=== PATIENT | female | born 1955 | race Caucasian/White ===

== ENCOUNTER → 2023-10-17 08:54 | Outpatient (REF) | payer OTHER, SELFPAY | LOC: RAD 08:54 | PROVIDERS: ATTENDING PHYSICIAN Family Medicine | DX: M85.80 Other specified disorders of bone density and structure, unspecified site (principal) | CPT/HCPCS: 77080 ==

== ENCOUNTER → 2024-06-15 10:54 | Outpatient (REF) | payer OTHER, SELFPAY | LOC: RAD 10:54 | PROVIDERS: ATTENDING PHYSICIAN Family Medicine | DX: R05.8 Other specified cough (principal); J20.8 Acute bronchitis due to other specified organisms | CPT/HCPCS: 71046 ==

== ENCOUNTER → 2024-07-03 18:10 | Outpatient (REF) | payer OTHER, SELFPAY | LOC: WDC 18:10 | PROVIDERS: ATTENDING PHYSICIAN Family Medicine | DX: Z12.31 Encounter for screening mammogram for malignant neoplasm of breast (principal) | CPT/HCPCS: 77063; 77067 ==

== ENCOUNTER 2024-10-30 21:39 | Emergency (ER) | payer OTHER, SELFPAY ==
[2024-10-30 21:43] VITALS: BP 181/91
[2024-10-30 22:05] LABS: % Basophils 0.9 % (0-2); % Eosinophils 3.1 % (0-6); % Immature Granulocytes 0.3 % (0-0.5); % Lymphocytes 5.1 % (20.5-51.1); % Monocytes 8.7 % (1.7-9.3); % Neutrophils 81.9 % (42.2-75.2); Absolute Basophils 0.1 10^3/uL (0-0.2); Absolute Eosinophils 0.2 10^3/uL (0-0.7); Absolute Lymphocytes 0.3 10^3/uL (1.2-3.4); Absolute Monocytes 0.6 10^3/uL (0.1-0.6); Absolute Neutrophils 5.3 10^3/uL (1.4-6.5); Hematocrit 41.2 % (37.0-47.0); Hemoglobin 13.9 g/dL (12.0-16.0); Mean Corp Hgb Conc. 33.7 g/dL (33.0-37.0); Mean Corpuscular Hgb 28.3 pg (27.0-31.0); Mean Corpuscular Volume 83.9 fL (81.0-99.0); Mean Platelet Volume 11.5 fL (7.4-10.4); Nucleated Red Blood Cells % 0 %; Platelet Count 204 10^3/uL (130-400); Red Blood Cell Count 4.91 10^6/uL (4.20-5.40); Red Cell Dist. Width 13.2 % (11.5-14.5); White Blood Cell Count 6.4 10^3/uL (4.8-10.8)
[2024-10-30 22:18] LABS: ALT (SGPT) 93 U/L (0-35); AST (SGOT) 78 U/L (14-36); Albumin 4.3 g/dl (3.5-5.0); Alkaline Phosphatase 91 U/L (38-126); Blood Urea Nitrogen 9 mg/dl (7-17); Calcium 9.5 mg/dl (8.4-10.2); Carbon Dioxide 24 mmol/L (22-30); Chloride 103 mmol/L (98-107); Glucose 115 mg/dl (70-99); Potassium 3.9 mmol/L (3.5-5.1); Sodium 136 mmol/L (135-145); Total Bilirubin 0.5 mg/dl (0.2-1.3); Total Protein 7.3 g/dl (6.3-8.2); eGFR > 60.00
--- NOTE | 2024-10-30 22:18 | ED.GENMED ---
History of Present Illness
General
Chief Complaint: Cold/Flu/URI Symptoms
Source: patient
Exam Limitations: none
Time Seen by Provider: 10/30/24 22:13
History of Present Illness
History of Present Illness:
See MDM
Past History
Past History
ED Past Medical History: Hypercholesterolemia
ED Past Surgical History: Cholecystectomy
Social History
Tobacco: Non-smoker
Alcohol: None
Drug: None
Personal:
Living: with family
Phy Exam
Physical Exam
Physical Exam:
See MDM
Course
Orders/Labs/Results
Orders:
Orders
10/30/24 21:47
Electrocardiogram (*1) Urgent
Reason for Study: Other
Other Reason for Exam: Respiratory Distress
Cardiac Monitoring- Treatment ONCE
EKG- Treatment ONCE
CR Chest - 2 Views Urgent
Comment:
Reason For Exam: respiratory distress
O2 Therapy [RESP] Urgent
Titrate/Wean O2 to maintain O2 sat greater than (%): 93
Special Instructions: TO MAINTAIN CONTINUOUS O2 SATS >/= 93%
Pulse Ox/cont/shift [RESP] Urgent
Quantity: 1
Special Instructions: continuous pulse ox
10/30/24 21:57
COVID-19 Antigen Urgent
Source: Nasal Swab
Complete Blood Count/With Diff Urgent
Comprehensive Metabolic Panel Urgent
NT-proBNP Urgent
Troponin I Urgent
Influenza A+B Rapid Molecular Urgent
ROSA Source: Nasal Swab
Specimen Description:
10/30/24 22:19
Ketorolac [Toradol] 30 mg IM NOW STA
10/31/24 00:33
Amoxicillin 875 mg/Clav 125 mg [Augmentin 875 mg/125 mg] 1 tablet PO NOW STA
Doxycycline [Vibramycin] 100 mg PO NOW STA
10/31/24 00:41
Oxycodone/Acetaminophen [Percocet 5/325] 1 tablet PO NOW STA
Abnormal Lab Results
10/30/24
21:57
MPV 11.5 H fL
(7.4-10.4)
Absolute Lymphs (auto) 0.3 L 10^3/uL
(1.2-3.4)
Neutrophils % 81.9 H %
(42.2-75.2)
Lymphocytes % 5.1 L %
(20.5-51.1)
Glucose 115 H mg/dl
(70-99)
AST 78 H U/L
(14-36)
ALT 93 H U/L
(0-35)
10/30/24 21:57
10/30/24 21:57
Vital Signs
Initial and Last Documented VS:
Initial Vital Signs
Temp Pulse Resp BP Pulse Ox
99.9 F 92 20 181/91 97
10/30/24 21:43 10/30/24 21:43 10/30/24 21:43 10/30/24 21:43 10/30/24 21:43
Last Documented Vital Signs
Temp Pulse Resp BP Pulse Ox
99.9 F 85 14 144/79 94
10/30/24 21:43 10/31/24 00:00 10/31/24 00:00 10/31/24 00:00 10/31/24 00:00
MDM/Problems Addressed
Differential Diagnosis Includes:
HPI and MDM Narrative:
69-year-old female presenting with center chest discomfort. This has been for the last 2 to 3 days. This is associated with a dry cough. Her grandson was recently influenza. She did receive her flu shot this year. On exam, she is
well-appearing. She denies exertional symptoms. She denies prior history of cardiac issues. Blood work was started prior to my evaluation. Will obtain EKG. Chest x-ray was performed prior to my evaluation showed no acute pathology.
Physical exam
General: Well appearing and non-toxic
HEENT: protecting airway
Neck: appears supple
CV: No evidence of cyanosis. Regular rate and rhythm
Resp: No accessory muscle use. Lungs clear. No wheezing auscultated
Abd: Non-distended
Extremities: No deformities
Neuro: alert
Psych: Normal affect
Skin: Intact
Problems Addressed including Acute and Chronic Conditions affecting care:
1. Chest discomfort
Acuity: acute
Prognosis: stable
Details: Likely in setting of recent flu exposure. Chest x-ray clear. Will obtain EKG and troponin given duration of symptoms
Updates
Radiology contacted me indicating concern for possible pneumonia. It did reference that the left lateral opacity could be a mass but less likely given the rapid development from prior chest x-ray. Patient made aware of this and understands return
precautions
Differential Diagnosis (but not limited to): Pleurisy, noncardiac chest pain, pneumonia
Testing considered: D-dimer but she is neither tachycardic nor hypoxic
Drug therapy (if applicable): OTC meds, please see d/c instruction regarding Rx drugs
Amount and/or Complexity of Data Reviewed
Clinical info obtained from: Patient
External data reviewed: N/A
Labs I independently reviewed (but not limited to): Blood cell count normal
Radiology: X-ray independently reviewed: Possible pneumonia
Pulse Ox: not hypoxic
EKG independently reviewed: sinus rhythm, normal axis, no STEMI
Payroll Specialist: Sinus rhythm
Critical Care: N/A
Risk of Complication:
Social Determinants of health: Good social support
Discussed with other providers: N/A
Escalation of Care includes Admit/Obs: After being observed in the Emergency Department, pt stable for discharge.
Occasional wrong word or 'sound a like' substitutions may have occurred due to the inherent limitations of voice recognition software. Read the chart carefully and recognize, using context, where substitutions have occurred.
*Critical Care Note
Total Time (30-74mins, 75-104mins- exclusive of procedures): Not Applicable
ED Attending Note
-
Portions of this chart may have been created with voice recognition software.� Occasional wrong word or��sound alike� substitutions may have occurred due to the inherent limitations of voice recognition software.
Discharge Plan
Departure
Patient Disposition: Home (Routine Discharge)
Date of Disposition: 10/31/24
Time of Disposition: 00:36
Patient with high blood pressure during this ER visit?: Yes
Discharge Problem:
PNA (pneumonia)
Instructions: Community-acquired pneumonia in adults, BLOOD PRESSURE
Prescriptions:
New
doxycycline hyclate 100 mg capsule
100 mg PO BID Qty: 14 0RF
amoxicillin-pot clavulanate 875-125 mg tablet
1 tab PO BID Qty: 14 0RF
No Action
rizatriptan [Maxalt] 10 MG tablet
10 mg PO PRN PRN (Reason: migraine)
ezetimibe 10 MG tablet
10 mg PO DAILY
ibuprofen 200 MG tablet
600 mg PO QIDPRN PRN (Reason: pain) Qty: 1 0RF
oxycodone-acetaminophen 5 MG/325 MG tablet
0.5 - 1 tab PO Q4HPRN PRN (Reason: pain not relieved by ibuprofen) Qty: 10 0RF
lisinopril 5 mg tablet
5 mg PO DAILY Qty: 14 0RF
Referrals:
Jessica Carvalho DO [Family Provider] -
Activity Restrictions/Additional Instructions:
Please return for any worsening symptoms.
You may return at any time if you have further concerns.
Please follow up with your doctor at the first available appointment, preferably this week. Please have a repeat chest x-ray in a week or so.
Thank you for choosing [facility].
Interventions
Interventions:
*Risk Screen - Suicide Last Done: 10/30/24 21:43
*General Assessment Last Done: 10/30/24 21:43
*Neglect/Abuse Screening Last Done: 10/30/24 21:43
*ED- Fall Risk Assessment Last Done: 10/30/24 21:43
*ED COVID-19 Vaccine History Last Done: 10/30/24 21:43
ED- Pulmonary Assessment Last Done: 10/30/24 22:43
Discharge Date and Time
Print Language: MARSHALLESE
[2024-10-30 22:21] LABS: COVID-19 Antigen Negative (Negative)
[2024-10-30 22:29] LABS: NT-proBNP 190 pg/ml; Troponin I < 0.012 ng/ml
[2024-10-30 22:36] VITALS: BMI 32.6
[2024-10-30 22:38] VITALS: BP 159/87
[2024-10-30] MEDS: TORADOL 30 MG IM (22:40)
[2024-10-30 23:00] VITALS: BP 148/83
[2024-10-31] VITALS: BP 144/79
[2024-10-31] MEDS: VIBRAMYCIN 100 MG PO (00:44)
[2024-10-31] MEDS: AUGMENTIN 875 MG/125 MG 1 TABLET PO (00:45)
[2024-10-31] MEDS: PERCOCET 5/325 1 TABLET PO (00:45)
== END 2024-10-31 00:51 | disposition home or self-care (01) ==
LOC: EMR 21:39
PROVIDERS: EMERGENCY PHYSICIAN Student in an Organized Health Care Education/Training Program; FAMILY PHYSICIAN Family Medicine
DX: J18.9 Pneumonia, unspecified organism (principal)
CPT/HCPCS: 99285; 96372; 71046; 80053; 83880; 84484; 85025; 87502; 87811; 93005

== ENCOUNTER 2024-10-31 20:58 | Emergency (ER) | payer OTHER, SELFPAY ==
[2024-10-31 20:59] VITALS: BMI 31.6
[2024-10-31 21:00] VITALS: BP 154/86
[2024-10-31 21:14] LABS: % Basophils 0.8 % (0-2); % Immature Granulocytes 0.3 % (0-0.5); % Lymphocytes 14.2 % (20.5-51.1); % Neutrophils 68.7 % (42.2-75.2); Absolute Lymphocytes 0.6 10^3/uL (1.2-3.4); Absolute Monocytes 0.6 10^3/uL (0.1-0.6); Absolute Neutrophils 2.7 10^3/uL (1.4-6.5); Hematocrit 39.9 % (37.0-47.0); Hemoglobin 13.2 g/dL (12.0-16.0); Mean Corp Hgb Conc. 33.1 g/dL (33.0-37.0); Mean Corpuscular Hgb 27.8 pg (27.0-31.0); Mean Platelet Volume 11.4 fL (7.4-10.4); Nucleated Red Blood Cells % 0 %; Platelet Count 190 10^3/uL (130-400); Red Blood Cell Count 4.75 10^6/uL (4.20-5.40); Red Cell Dist. Width 13.3 % (11.5-14.5); White Blood Cell Count 3.9 10^3/uL (4.8-10.8)
[2024-10-31 21:44] LABS: ALT (SGPT) 89 U/L (0-35); AST (SGOT) 57 U/L (14-36); Albumin 4.4 g/dl (3.5-5.0); Alkaline Phosphatase 87 U/L (38-126); Blood Urea Nitrogen 9 mg/dl (7-17); Carbon Dioxide 22 mmol/L (22-30); Chloride 97 mmol/L (98-107); Glucose 105 mg/dl (70-99); Potassium 3.8 mmol/L (3.5-5.1); Sodium 130 mmol/L (135-145); Total Bilirubin 0.8 mg/dl (0.2-1.3); Total Protein 6.9 g/dl (6.3-8.2); eGFR > 60.00
--- NOTE | 2024-10-31 23:06 | ED.GENMED ---
History of Present Illness
General
Chief Complaint: Pneumonia Symptoms
Time Seen by Provider: 10/31/24 23:06
History of Present Illness
History of Present Illness:
TIME OF INITIAL ENCOUNTER: 11:10 PM
HPI: The patient was seen here yesterday and at that time had been having chest discomfort over the preceding few days. This is associated with a dry cough. Chest x-ray yesterday suggested pneumonia and she was placed on Augmentin. She continues
to feel worse. She now has associated nausea and headache. She has had migraines in the past. Daughter notes that she is more withdrawn today which is very abnormal for her.
EXAM:
GENERAL: Appears somewhat withdrawn and weak
HEENT: Moist oral mucosa
CARDIOVASCULAR: No murmurs, normal heart rate, regular rhythm, No chest wall tenderness
PULMONARY: No respiratory distress, breath sounds are clear and equal other than some faint rales in the right
ABDOMEN: Soft with no peritoneal signs, no tenderness
NEUROLOGIC: Excellent strength all extremities, no coordination deficits
PSYCHIATRIC: Appropriate mental status, normal insight and judgement
EXTREMITIES: Nontender, no edema, moves all extremities equally
SKIN: No rash, no lesions
NUMBER AND COMPLEXITY OF PROBLEMS ADDRESSED AT THE ENCOUNTER
� Chronic conditions affecting care: Migraines, has had pneumonia in the past
� Acute Exacerbation and/or Progression of Chronic Illness: This is an acute problem
� Differential Diagnosis includes: Acute exacerbation of migraine, worsening pneumonia
AMOUNT AND/OR COMPLEXITY OF DATA TO BE REVIEWED AND ANALYZED
� I performed an independent evaluation of and my interpretation is:
EKG:
CT:
X-rays: Chest x-ray by my read shows no significant change compared to chest x-ray from yesterday
Laboratory Studies: White count 3.9, hemoglobin normal, sodium slightly low at 130, mild transaminase elevation
Other:
� Review of other/old records: I reviewed the chest x-ray from yesterday that shows a new small 1.7 cm subpleural opacity at the peripheral left midlung and there is also moderate groundglass opacity in the right middle lobe and
mild consolidation at the lingula
� Clinical information was obtained by an independent historian: I spoke to and daughter at bedside
� Prescriptions/Medications Considered but not given:
� Further testing considered but not performed:
RISK OF COMPLICATIONS AND/OR MORBIDITY OR MORTALITY OF PATIENT MANAGEMENT
� Social determinants of health affecting care: Lives at home
� Discussion with other providers:
� Escalation of care including admission/observation vs risk of discharge considered: The patient is given IV fluids, Reglan/Benadryl along with Toradol. We also gave IV antibiotics.
ANY OTHER UPDATES:
12:30 AM: Overall the patient feels significantly improved regarding the headache and nausea. The chest x-ray is essentially unchanged from yesterday. She is afebrile and white count lower than yesterday.
2 AM: The patient feels significantly improved. We ultimately decided to have her stop the Augmentin and doxycycline and will use cefdinir instead. She states that when she took the antibiotic she was getting severely nauseated. I did consider
admission to the hospital however the patient does feel comfortable going home.
Past History
Past History
ED Past Medical History: Hypercholesterolemia
ED Past Surgical History: Cholecystectomy
Social History
Tobacco: Non-smoker
Alcohol: None
Drug: None
Personal:
Living: with family
Phy Exam
Physical Exam
Physical Exam:
See HPI
Course
Orders/Labs/Results
Orders:
Orders
10/31/24 21:04
Chest [CR Chest - 2 Views ] Urgent
Comment:
Reason For Exam: pna
10/31/24 21:09
Complete Blood Count/With Diff Urgent
Comprehensive Metabolic Panel Urgent
10/31/24 23:20
0.9% Sodium Chloride 500 ml [Nss] 500 ml IV BOLUS
Diphenhydramine [Benadryl] 25 mg IV NOW STA
Ketorolac [Toradol] 15 mg IV NOW STA
Metoclopramide [Reglan] 10 mg IV NOW STA
10/31/24 23:21
Azithromycin 500 mg/250 ml [Zithromax Infusion] 500 mg in 250 ml IV NOW
CefTRIAXone [Rocephin] 1,000 mg IV NOW STA
10/31/24 23:32
Lactic Acid Q4H
Comment: CANCEL 2nd LACTIC ACID IF 1st LACTIC ACID IS LESS THAN 2
Blood Culture Q30M
ROSA Source: Blood/Venous
Specimen Description:
11/01/24 00:00
Blood Culture Q30M
ROSA Source: Blood/Venous
Specimen Description:
11/01/24 01:28
Acetaminophen [Tylenol] 1,000 mg PO NOW STA
Abnormal Lab Results
10/31/24
21:09
WBC 3.9 L 10^3/uL
(4.8-10.8)
MPV 11.4 H fL
(7.4-10.4)
Absolute Lymphs (auto) 0.6 L 10^3/uL
(1.2-3.4)
Lymphocytes % 14.2 L %
(20.5-51.1)
Monocytes % 15.0 H %
(1.7-9.3)
Sodium 130 L mmol/L
(135-145)
Chloride 97 L mmol/L
(98-107)
Glucose 105 H mg/dl
(70-99)
AST 57 H U/L
(14-36)
ALT 89 H U/L
(0-35)
10/31/24 21:09
10/31/24 21:09
Vital Signs
Initial and Last Documented VS:
Initial Vital Signs
Temp Pulse Resp BP Pulse Ox
37.0 C 72 18 154/86 99
10/31/24 21:00 10/31/24 21:00 10/31/24 21:00 10/31/24 21:00 10/31/24 21:00
Last Documented Vital Signs
Temp Pulse Resp BP Pulse Ox
37.0 C 72 18 152/86 93
10/31/24 21:00 10/31/24 21:00 10/31/24 21:00 11/01/24 00:00 11/01/24 00:00
*Critical Care Note
Total Time (30-74mins, 75-104mins- exclusive of procedures): Not Applicable
ED Attending Note
-
Portions of this chart may have been created with voice recognition software.� Occasional wrong word or��sound alike� substitutions may have occurred due to the inherent limitations of voice recognition software.
Discharge Plan
Departure
Patient Disposition: Home (Routine Discharge)
Date of Disposition: 11/01/24
Time of Disposition: 01:28
Patient with high blood pressure during this ER visit?: Yes
Discharge Problem:
Migraine
Instructions: Migraine in adults
Prescriptions:
New
cefdinir 300 mg capsule
300 mg PO BID Qty: 14 0RF
No Action
rizatriptan [Maxalt] 10 MG tablet
10 mg PO PRN PRN (Reason: migraine)
ezetimibe 10 MG tablet
10 mg PO DAILY
ibuprofen 200 MG tablet
600 mg PO QIDPRN PRN (Reason: pain) Qty: 1 0RF
oxycodone-acetaminophen 5 MG/325 MG tablet
0.5 - 1 tab PO Q4HPRN PRN (Reason: pain not relieved by ibuprofen) Qty: 10 0RF
lisinopril 5 mg tablet
5 mg PO DAILY Qty: 14 0RF
doxycycline hyclate 100 mg capsule
100 mg PO BID Qty: 14 0RF
amoxicillin-pot clavulanate 875-125 mg tablet
1 tab PO BID Qty: 14 0RF
Referrals:
Jessica Carvalho DO [Family Provider] -
Activity Restrictions/Additional Instructions:
I am sending a prescription for cefdinir to your pharmacy. We gave you an IV dose of Rocephin tonight as well as a dose of azithromycin. The chest x-ray to me does not look any worse compared to what it looked like the other day. Headache and
nausea could be related to either migraine or adverse medication effect. I recommend that you stop the Augmentin and Doxycycline. We also gave you Reglan with Benadryl along with Toradol for the headache.
Interventions
Interventions:
*Risk Screen - Suicide Last Done: 10/31/24 21:00
*General Assessment Last Done: 10/31/24 21:00
*ED COVID-19 Vaccine History Last Done: 10/31/24 21:00
ED- Cardiac Assessment Last Done: 10/31/24 23:37
ED- Pulmonary Assessment Last Done: 10/31/24 23:37
Discharge Date and Time
Print Language: PALAUAN
[2024-10-31 23:15] VITALS: BP 155/85
[2024-10-31] MEDS: NSS 500 IV (23:43)
[2024-10-31] MEDS: BENADRYL 25 MG IV (23:46)
[2024-10-31] MEDS: TORADOL 15 MG IV (23:49)
[2024-10-31 23:54] LABS: Lactic Acid 0.8 mmol/L (0.7-2.0)
[2024-10-31] MEDS: REGLAN 10 MG IV (23:54)
[2024-10-31] MEDS: ROCEPHIN 1000 MG IV (23:57)
[2024-11-01] VITALS: BP 152/86
[2024-11-01] MEDS: ZITHROMAX INFUSION 250 IV (00:37)
[2024-11-01 01:00] VITALS: BP 128/81
[2024-11-01] MEDS: TYLENOL 1000 MG PO (01:46)
== END 2024-11-01 01:58 | disposition home or self-care (01) ==
LOC: EMR 20:58
PROVIDERS: EMERGENCY PHYSICIAN Emergency Medicine; FAMILY PHYSICIAN Family Medicine
DX: G43.909 Migraine, unspecified, not intractable, without status migrainosus (principal); R07.89 Other chest pain; E78.00 Pure hypercholesterolemia, unspecified; Z90.49 Acquired absence of other specified parts of digestive tract
CPT/HCPCS: 99283; 96365; 96375; 71046; 80053; 83605; 85025; 87040

== ENCOUNTER → 2024-12-21 10:10 | Outpatient (REF) | payer OTHER, SELFPAY | LOC: RAD 10:10 | PROVIDERS: ATTENDING PHYSICIAN Nurse Practitioner; FAMILY PHYSICIAN Family Medicine | DX: R93.89 Abnormal findings on diagnostic imaging of other specified body structures (principal) | CPT/HCPCS: 71046 ==

== ENCOUNTER → 2024-12-26 11:11 | Outpatient (REF) | payer OTHER, SELFPAY | LOC: HWRAD 11:11 | PROVIDERS: ATTENDING PHYSICIAN Physician Assistant Medical; FAMILY PHYSICIAN Family Medicine | DX: M79.2 Neuralgia and neuritis, unspecified (principal); R51.9 Headache, unspecified | CPT/HCPCS: 70450 ==

== ENCOUNTER → 2025-06-13 09:55 | Outpatient (REF) | payer OTHER, SELFPAY | LOC: RAD 09:55 | PROVIDERS: ATTENDING PHYSICIAN Family Medicine | DX: R74.01 Elevation of levels of liver transaminase levels (principal) | CPT/HCPCS: 76700 ==

== ENCOUNTER → 2025-07-04 17:29 | Outpatient (REF) | payer OTHER, SELFPAY | LOC: WDC 17:29 | PROVIDERS: ATTENDING PHYSICIAN Family Medicine | DX: Z12.31 Encounter for screening mammogram for malignant neoplasm of breast (principal) | CPT/HCPCS: 77063; 77067 ==